=== PATIENT | male | born 1960 | race Caucasian/White ===

== ENCOUNTER → 2018-01-18 13:14 | Outpatient (CLI) | payer OTHER, SELFPAY ==
--- NOTE | 2018-01-18 | DI.RAD.S_ITS ---
PROCEDURE: XR CERVICAL SPINE 4V OR 5V INDICATIONS: NECK AND BACK PAIN TECHNIQUE: 5 views of the cervical spine were acquired. COMPARISON: None. FINDINGS: Bones: No fractures or dislocations to the T1 level. No suspicious bony lesions. There is normal range of motion between flexion and extension, with preserved normal bony alignment. Soft tissues: Prevertebral soft tissues are normal in thickness. IMPRESSION: Mild mid and lower cervical degenerative disc height reduction but no evidence of prior trauma or ligamentous laxity and subluxation is found. Dictated by: Luis Eduardo M.D. on 01/18/2018 at 13:38 Approved by: Luis Eduardo M.D. on 01/18/2018 at 13:38
== END ==
PROVIDERS: Family Provider Family Medicine; PCP Family Medicine; Visit Provider Family Medicine
DX: M54.2 Cervicalgia (principal); M54.9 Dorsalgia, unspecified
CPT/HCPCS: 72050

== ENCOUNTER → 2018-09-13 13:48 | Outpatient (CLI) | payer OTHER, SELFPAY ==
--- NOTE | 2018-09-13 | DI.RAD.S_ITS ---
PROCEDURE: FL ELBOW INJECTION MR/CT RT INDICATIONS: LOOSE BODY OF RIGHT ELBOW TECHNIQUE: The indications, alternatives, benefits, risks, and complications of the procedure were explained to the patient. Written informed consent was obtained and placed in the chart. The elbow was examined fluoroscopically in the lateral projection, and a site for needle placement chosen for entry into the elbow joint from a lateral approach. The skin was prepped and draped in a sterile fashion, and 1% lidocaine infiltrated from skin down to joint capsule. A hypodermic needle was inserted into the joint, and a small amount of iodinated contrast media injected to confirm intra-articular placement of the needle tip. This was followed by approximately 10 cc of dilute Isovue 300. The needle was removed and a dressing was applied. The patient was given post-procedural instructions and sent to the CT suite for imaging. FINDINGS: A single fluoroscopic spot image demonstrates intra-articular location of injected contrast material. 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 Dictated by: Saman Rhoades M.D. on 09/13/2018 at 16:55 Approved by: Saman Rhoades M.D. on 09/13/2018 at 16:56
--- NOTE | 2018-09-13 | DI.CT.S_ITS ---
PROCEDURE: CT UE RT W CON INDICATIONS: LOOSE BODY OF RIGHT ELBOW TECHNIQUE: After the intra-articular administration of 5 mL of air contrast, 1-1.5 mm axial sections acquired through the elbow joint, with coronal and sagittal reformats. COMPARISON: [facility] [place], CR, XR ELBOW 1 OR 2 VIEWS RIGHT, 09/06/2018, 10:09. FINDINGS: Image quality: Excellent. Bones: No fracture. Moderate periarticular osteophyte formation. Soft tissues: A 12 mm diameter loose body at the posterior aspect of the distal humerus medially is present. A 6 mm diameter intra-articular loose body adjacent to the coronoid process of the ulna. IMPRESSION: 1. Osteoarthritis. 2. Intra-articular loose bodies. Dictated by: Micaela Sage M.D. on 09/13/2018 at 14:43 Approved by: Micaela Sage M.D. on 09/13/2018 at 14:48
== END ==
PROVIDERS: PCP Family Medicine; Visit Provider Orthopaedic Surgery
DX: M24.021 Loose body in right elbow (principal); M19.021 Primary osteoarthritis, right elbow
CPT/HCPCS: 24220; 73201; 77002

== ENCOUNTER → 2018-11-19 09:51 | Outpatient (CLI) | payer OTHER, SELFPAY ==
--- NOTE | 2018-11-19 09:54 | DI.RAD.S_ITS ---
PROCEDURE: XR HIP W PEL IF DONE LT 2V INDICATIONS: hip pain TECHNIQUE: 2 views of the hip were acquired. COMPARISON: [facility], CR, XR PELVIS WITH LATERAL HIP LEFT, 09/25/2017, 15:42. [facility], CR, PELVIS 1 OR 2 VIEWS, 10/27/2009, 12:21. FINDINGS: Bones: No fractures or dislocations. No suspicious bony lesions. The visualized pelvic ring appears intact. Moderate left hip joint degeneration. Soft tissues: No suspicious soft tissue calcifications or masses. IMPRESSION: Moderate left hip joint degeneration. No interval change since 09/25/17 Dictated by: Saman Rhoades M.D. on 11/19/2018 at 14:46 Approved by: Saman Rhoades M.D. on 11/19/2018 at 14:48
[2018-11-19 11:59] LABS: Erythrocyte Sedimentation Rate 10 MM/HR (0-15)
[2018-11-19 12:18] LABS: C-Reactive Protein Quant < 0.5 mg/dL (<1.0); Rheumatoid Factor < 8.6 IU/mL (<12.0)
[2018-11-21 11:12] LABS: CCP Antibody (IgG) < 16 Units (< 20)
== END ==
PROVIDERS: PCP Family Medicine; Visit Provider Family Medicine
DX: M16.12 Unilateral primary osteoarthritis, left hip (principal)
CPT/HCPCS: 36415; 73502; 85651; 86140; 86200; 86430

== ENCOUNTER → 2019-03-12 11:28 | Outpatient (CLI) | payer OTHER, SELFPAY ==
[2019-03-16 14:08] LABS: Testosterone Free 36.9 pg/mL (35.0-155.0); Testosterone Total 314 ng/dL (250-1100)
== END ==
PROVIDERS: PCP Family Medicine; Visit Provider Family Medicine
DX: R53.83 Other fatigue (principal); R68.82 Decreased libido
CPT/HCPCS: 84402; 84403

== ENCOUNTER 2019-03-27 06:13 | Day surgery (SDC) | payer OTHER, SELFPAY ==
[2019-03-25 08:14] VITALS: BMI 28.4
[2019-03-27] VITALS (7 sets, daily range): BP systolic 97–117; BP diastolic 60–74; PULSE 67–73; RESP 9–16; TEMP 36.2–36.9; O2SAT 95–99; BMI 27.3
[2019-03-27] MEDS: LACTATED RINGERS 1,000 ML 42 ML IV (07:01)
--- NOTE | 2019-03-27 07:45 | PM.PREOP ---
Pre-operative Note Interval Note History & Physical reviewed/Exam performed by Physician: Yes Changes to H&P: No
[2019-03-27] MEDS: CEFAZOLIN 2 GM/100 ML FROZ.PIGGY IV (07:57)
--- NOTE | 2019-03-27 08:42 | SUR.OPER ---
Lateral on padded OR bed with anderson bag positioner, head on pillow, gel axillary roll in place, bottom leg bent with gel pad under knee to foot, upper leg straight and supported with pillows. Operative arm on padded arm brace and secured at humerus with coban. Non-operative arm secured on padded arm board. Safety belt at hip, tape over blanket securing lower legs and torso.
[2019-03-27] MEDS: BUPIVACAINE 0.5% W/ EPI (PF) VIAL 30 ML INJ (08:54)
--- NOTE | 2019-03-27 09:43 | PM.OP.1 ---
Operative Date/Time/Diagnoses Date of procedure: 03/27/19 Time of procedure: 08:00 Pre-op diagnosis: Right elbow stiffness with mechanical symptoms due to loose bodies Post-op diagnosis: same Procedure & Clinicians Procedure: Right elbow arthroscopic extensive debridement with removal of multiple loose bodies Same procedure as scheduled: Yes Indications: Multiple intra-articular loose bodies to the anterior and posterior elbow joint with mild arthritic changes as well as decreased range of motion. Surgeon: Hansel Tarango Box Printing Machine Operator: Jie Reza Click Yes if Unassisted: No Anesthesia Type: General Operative Notes Findings: Multiple loose bodies in the anterior aspect of the elbow. Early stage arthritic changes to both the ulnar and radial column. Thickened capsular tissue around the anterior aspect of the elbow joint. Single large loose body in the posterior aspect of the elbow in the radial gutter. Synovitis and scarring in the olecranon fossa. Closure Type: primary Specimen(s): none sent Estimated Blood Loss (mL): 5 Blood products transfused: none Tourniquet time (min): 59 Procedure in detail: On date of service, patient was met in the holding area where his operative site was signed and witnessed by the OR staff. Surgeries once again discussed with the patient in remaining questions or concerns he had were answered fully. Patient was taken back to the operating theater and placed on the operating table in a supine position. Great care was taken to ensure that all bony prominences were appropriately padded. Patient was then placed in the lateral position using a beanbag. Axillary roll was placed. The right arm was placed into the right arm lockhart with the elbow bent at 90?. Time-out was previously performed verifying patient's name, procedure, and operative site. Right arm was prepped and draped in the normal sterile fashion. Esmarch was used to exsanguinate the limb and the tourniquet was turned up to 250 mm of mercury. Patient's bony anatomy and portal sites were drawn out previously. Course of the ulnar nerve was also drawn out so it was always visible throughout the entire case. Fifteen blade was used to incise through skin only for the anterior ulnar and radial portal. Hemostat was used to bluntly dissect down into the elbow joint. Camera was placed radially and the shaver was placed ulnarly and extensive debridement of mainly the radial aspect of the elbow joint was performed. Patient had a few loose bodies some of the rather large. So grasper was used to remove some of the larger loose bodies. There was also quite a bit of synovitis in the anterior aspect of the elbow joint. We also debrided some of the thickened capsular tissue to try to help with overall range of motion. Great care was taken to ensure just the capsular tissue was removed and there was no damage to the surrounding structures. Next the camera and shaver was switched placed in the camera ulnarly and the shaver radially allowing us to debride the other anterior half of the elbow joint. Large loose body coming off the distal humerus which was removed using a grasper. And continues debridement was performed of the surrounding capsular tissue. Once we felt that we had removed all loose bodies cleaned up the synovitis and did a good capsular release we turned our attention posteriorly. Two incisions were made a posterior incision and a posterior radial incision. Shaver and camera replaced into these portals and a debridement of the olecranon fossa was performed. Patient had a very large loose body in the radial gutter which was broken up into multiple pieces and then removed. No loose bodies in the ulnar gutter. Shaver was used to debride out all the synovitis and scarring around the olecranon fossa to improve overall range of motion. Elbow was taken through range of motion and there was improvement in extension by about 10?. Patient previously had relatively full flexion. Patient had full supination and pronation as well. Portal sites were closed with nylon. Elbow was cleaned, dried, and dressed. Marcaine was injected into the elbow joint as well as around the portal sites. Patient was extubated and taken to the PACU in stable condition. Postoperatively patient will be in a sling just for comfort. There is no restrictions to range of motion. Will limit lifting for about 2 weeks. Complications: none Post-operative Condition: stable Disposition: PACU Plan for aftercare: No restrictions to range of motion. Patient can be rather aggressive with his range of motion. Will limit lifting for about 2 weeks. After 2 weeks, no restrictions whatsoever. Sling is just for comfort.
[2019-03-27] MEDS: OXYCODONE/ACETAMINOPHEN 5/325 TABLET 1 TAB PO (10:43)
== END 2019-03-27 11:02 | disposition home or self-care (01) ==
PROVIDERS: PCP Family Medicine; Visit Provider Orthopaedic Surgery
PROC: (CPT 29838; principal; 2019-03-27 07:45)
DX: M19.021 Primary osteoarthritis, right elbow (principal); M24.021 Loose body in right elbow; I48.91 Unspecified atrial fibrillation; E78.5 Hyperlipidemia, unspecified; F17.210 Nicotine dependence, cigarettes, uncomplicated; M65.9 Synovitis and tenosynovitis, unspecified
CPT/HCPCS: 29838; 29834; J0690; J1100; J2405; J2704; J3010

== ENCOUNTER → 2019-10-22 12:37 | Outpatient (CLI) | payer OTHER, SELFPAY ==
--- NOTE | 2019-10-22 12:40 | DI.RAD.S_ITS ---
PROCEDURE: XR SHOULDER LT MIN 2V INDICATIONS: shoulder pain TECHNIQUE: 3 views of the shoulder were acquired. COMPARISON: None. FINDINGS: Bones: No acute fractures or dislocations. Moderate hypertrophic degenerative changes of the left acromioclavicular joint with undersurface spurring of the distal clavicle. Coracoclavicular and acromioclavicular intervals are maintained. There are degenerative changes of the left glenohumeral joint with associated marginal osteophytes of the humeral head. No suspicious bony lesions. Visualized ribs appear intact. Soft tissues: No suspicious soft tissue calcifications. IMPRESSION: Left shoulder without acute osseous abnormalities or malalignment. Osteoarthritic changes of the left acromioclavicular and glenohumeral joints. Dictated by: Jason Linder M.D. on 10/22/2019 at 13:02 Approved by: Jason Linder M.D. on 10/22/2019 at 13:03
== END ==
PROVIDERS: PCP Family Medicine; Referring Provider Family Medicine; Visit Provider Family Medicine
DX: M25.512 Pain in left shoulder (principal)
CPT/HCPCS: 73030

== ENCOUNTER → 2019-12-10 17:16 | Outpatient (CLI) | payer OTHER, SELFPAY ==
--- NOTE | 2019-12-10 | DI.MRI.S_ITS ---
PROCEDURE: MR ELBOW RT WO CON INDICATIONS: Pain in right elbow TECHNIQUE: Noncontrast coronal proton density fast spin echo and T2 fast spin echo with fat saturation, axial and sagittal T1 spin echo and T2 fast spin echo with fat saturation through the elbow. COMPARISON: [facility], CR, XR ELBOW 1 OR 2 VIEWS RIGHT, 11/17/2019, 16:08. [facility], MR, ELBOW WITHOUT CONTRAST, 03/20/2013, 14:13. FINDINGS: Image quality: Excellent. Lateral structures: The radial collateral ligament is thickened with mild intermediate signal. There is also irregularity along its deep fibers. The findings are consistent with sequela of a moderate sprain. The lateral ulnar collateral ligament is mildly attenuated suggestive of a mild sprain. The annular ligament appears intact. The overlying common extensor tendon demonstrates tendinopathy and thickening proximally with moderate partial tearing at its origin. Medial structures: The ulnar collateral ligament appears intact. The overlying common flexor tendon demonstrates tendinopathy proximally with mild to moderate partial tearing and mild peritendinous edema. The ulnar nerve appears normal in size and signal within the cubital tunnel. Anterior structures: The biceps and brachialis tendons both appear intact as they insert onto the proximal radius and ulna, respectively. There is minimal peritendinous edema along the distal biceps tendon suggestive of minimal peritendinitis. No bicipitoradial bursal fluid. The median and radial neurovascular bundles appear normal; no focal muscle atrophy to suggest nerve impingement. Posterior structures: The conjoint triceps tendon from the long and lateral heads appears intact. The medial head of the triceps tendon also appears normal, with direct muscle insertion onto the olecranon. No olecranon bursal fluid. Bone and cartilage: No bone marrow contusions or fractures. There is mild osteophytosis along the ulnotrochlear articulation as well as the olecranon and coronoid processes. There is mild cartilage thinning along the ulna trochlea articulation with mild superficial chondromalacia. Along the radiocapitellar articulation, there is also mild cartilage thinning with mild fissuring associated with small foci of subchondral edema. No discrete loose or unstable fragment. There is a small elbow joint effusion. There are small irregular filling defects within a joint recess posterior to the capitellum along the capsule suggestive of a synovitis or sequelae of a capsular sprain. IMPRESSION: 1. Findings compatible with a moderate sprain of the radial collateral ligament and mild sprain of the lateral ulnar collateral ligament. 2. Tendinopathy and moderate partial tear at the origin of the common extensor tendon. 3. Tendinopathy and mild to moderate partial tearing at the origin of the common flexor tendon with mild peritendinitis. 4. [id number] osteoarthritic changes. 5. Small joint effusion with small irregular filling defects in a joint recess posterior to the capitellum suggestive of synovitis or sequelae of a capsular sprain. Dictated by: Valentin Willett M.D. on 12/15/2019 at 8:22 Approved by: Valentin Willett M.D. on 12/15/2019 at 8:50
== END ==
PROVIDERS: PCP Family Medicine; Referring Provider Family Medicine; Visit Provider Orthopaedic Surgery
DX: M25.521 Pain in right elbow (principal); S53.491A Other sprain of right elbow, initial encounter; M77.8 Other enthesopathies, not elsewhere classified; M25.421 Effusion, right elbow
CPT/HCPCS: 73221

== ENCOUNTER → 2019-12-13 10:57 | Outpatient (CLI) | payer OTHER, SELFPAY ==
[2019-12-13 11:28] LABS: Add Manual Diff / Slide Review NO; Basophils Absolute Auto 0 /uL (0-100); Basophils Percent Auto 1.1 % (0-2); Eosinophils Absolute Auto 100 /uL (0-450); Eosinophils Percent Auto 2.6 % (2-4); Hematocrit 40.4 % (41-53); Hemoglobin 13.7 g/dL (13.5-17.5); Lymphocytes Absolute Auto 1600 /uL (1100-4500); Lymphocytes Percent Auto 39.8 % (25-40); Mean Corpuscular HGB Conc 33.9 % (30-36); Mean Corpuscular Hemoglobin 31.8 PG (26-34); Mean Corpuscular Volume 93.8 fL (80-100); Monocytes Absolute Auto 300 /uL (0-900); Monocytes Percent Auto 8.5 % (3-14); Neutrophils Absolute Auto 1900 /uL (1500-7000); Platelet Count 234 X10^3/uL (150-400); Red Blood Cell Count 4.31 X10^6/uL (4.5-5.9); Red Cell Distribution Width 12.5 % (11.6-14.8)
[2019-12-13 11:33] LABS: Alanine Aminotransferase 24 IU/L (<50); Albumin 4.5 g/dL (3.5-5.0); Albumin Globulin Ratio 1.4 (1.0-2.8); Alkaline Phosphatase 80 U/L (38-126); Aspartate Aminotransferase 31 IU/L (17-59); BUN Creatinine Ratio 23.3 (6-22); Bilirubin Total 0.7 mg/dL (0.2-1.3); Blood Urea Nitrogen 17 mg/dL (9-20); Calcium 9.3 mg/dL (8.4-10.2); Carbon Dioxide 29 mmol/L (22-32); Chloride 105 mmol/L (98-107); Cholesterol 168 mg/dL (140-199); Estimated Glomerular Filt Rate > 60.0 mL/min (>60); Globulin 3.2 g/dL (1.7-4.1); Glucose 111 mg/dL (70-100); HDL Cholesterol 46 mg/dL (40-60); HEMOLYSIS < 15 (0-50); LDL Cholesterol Calculated 89 mg/dL (<100); Potassium 4.8 mmol/L (3.4-5.1); Sodium 139 mmol/L (137-145); Total Protein 7.7 g/dL (6.3-8.2); Triglycerides 164 mg/dL (35-150)
[2019-12-13 12:04] LABS: Prostate Specific Antigen 0.975 ng/mL (0.10-4.00)
== END ==
PROVIDERS: PCP Family Medicine; Referring Provider Family Medicine; Visit Provider Family Medicine
DX: E78.5 Hyperlipidemia, unspecified (principal); I48.91 Unspecified atrial fibrillation
CPT/HCPCS: 36415; 80053; 80061; 84153; 84443; 85025

== ENCOUNTER → 2020-05-07 10:19 | Outpatient (CLI) | payer OTHER, SELFPAY ==
--- NOTE | 2020-05-07 10:20 | DI.RAD.S_ITS ---
PROCEDURE: XR CERVICAL SPINE 2V OR 3V INDICATIONS: neck pain TECHNIQUE: 3 view(s) of the cervical spine were acquired. COMPARISON: [facility], CR, XR CERVICAL SPINE 4V OR 5V, 01/18/2018, 13:02. FINDINGS: Bones: No fractures or dislocations to the C7 level. The lateral masses of C1 appear intact on the odontoid view. No suspicious bony lesions. There is mild degenerative disease at C5-C6 and C6-C7. Bilateral facet arthropathy is scattered in cervical spine, most pronounced at C5-C6 on the left. Soft tissues: No prevertebral soft tissue swelling. IMPRESSION: 1. Mild degenerative disease at C5-C6 and C6-C7. 2. Bilateral facet arthropathy, most pronounced at C5-C6 on the left. Dictated by: Julio C Mart M.D. on 05/07/2020 at 11:39 Approved by: Julio C Mart M.D. on 05/07/2020 at 11:41
== END ==
PROVIDERS: PCP Family Medicine; Referring Provider Family Medicine; Visit Provider Family Medicine
DX: M50.322 Other cervical disc degeneration at C5-C6 level (principal); M47.812 Spondylosis without myelopathy or radiculopathy, cervical region
CPT/HCPCS: 72040

== ENCOUNTER → 2020-05-11 09:59 | Outpatient (CLI) | payer OTHER, SELFPAY ==
--- NOTE | 2020-05-11 10:06 | DI.RAD.S_ITS ---
PROCEDURE: XR SHOULDER LT MIN 2V INDICATIONS: left shoulder TECHNIQUE: 3 views of the shoulder were acquired. COMPARISON: [facility], , XR SHOULDER LT MIN 2V, 10/22/2019, 12:33. FINDINGS: Bones: No fractures or dislocations. No suspicious bony lesions. Visualized ribs appear intact. Moderate acromioclavicular and glenohumeral joint osteoarthritis. Soft tissues: No suspicious soft tissue calcifications. IMPRESSION: 1. Osteoarthritis. 2. No fracture. No acute osseous lesion. If symptoms and/or clinical suspicion for pathology persists, further assessment with repeat radiographs (7-10 days) or advanced imaging (e.g. CT, MRI or bone scan) may be helpful. Dictated by: Isela Wright MD, PhD on 05/11/2020 at 17:05 Approved by: Isela Wright MD, PhD on 05/11/2020 at 17:06
== END ==
PROVIDERS: PCP Family Medicine; Referring Provider Family Medicine; Visit Provider Family Medicine
DX: M25.512 Pain in left shoulder (principal); M19.012 Primary osteoarthritis, left shoulder
CPT/HCPCS: 73030

== ENCOUNTER → 2020-06-28 13:27 | Outpatient (CLI) | payer OTHER, SELFPAY ==
--- NOTE | 2020-06-28 13:29 | DI.MRI.S_ITS ---
PROCEDURE: MR CERVICAL SPINE WO CON INDICATIONS: cervical pain and Left radicular pain TECHNIQUE: Noncontrast sagittal T1 spin echo and T2 fast spin echo, sagittal STIR, foraminal oblique sagittal T2 fast spin echo, and axial gradient echo or T2 fast spin echo through the cervical spine. COMPARISON: None. FINDINGS: Image quality: Excellent. Alignment and Curvature: There is loss of normal cervical lordosis. There is mild grade 1 anterolisthesis of C2 on C3. Bone Marrow: Marrow demonstrates normal overall signal. Mild reactive signal within the endplates adjacent to the C2-C3, C3-C4, C5-C6, and C6-C7 intervertebral discs. Spinal Cord: Visualized spinal cord has normal size and signal. No cerebellar tonsillar herniation. Paraspinous Soft Tissues: No paravertebral masses. Prevertebral soft tissues are normal in thickness. C2-C3: Congenital canal stenosis. Moderate disc desiccation and mild diffuse disc bulge. Mild facet and uncovertebral hypertrophy bilaterally. Mild canal stenosis. Severe right and mild left foraminal stenosis. Right C3 nerve root compression. C3-C4: Congenital canal stenosis. Moderate disc desiccation. Mild diffuse disc bulge. Moderate facet and uncovertebral hypertrophy bilaterally. Moderate canal stenosis. Severe bilateral foraminal stenosis with bilateral C4 nerve root compression. C4-C5: Mild disc desiccation. Mild right and moderate left facet and uncovertebral hypertrophy bilaterally. Congenital canal stenosis. Mild canal stenosis. Mild right and severe left foraminal stenosis. Left C5 nerve root compression. C5-C6: Congenital canal stenosis. Moderate disc desiccation and diffuse disc bulge. Moderate facet and uncovertebral hypertrophy, right greater than left. Moderate canal stenosis. Severe, right greater than left foraminal stenosis with bilateral C6 nerve root compression. C6-C7: Congenital canal stenosis. Moderate disc height loss and desiccation. Moderate diffuse disc bulge. Moderate facet and uncovertebral hypertrophy bilaterally. Severe canal stenosis. Mild cord flattening. Severe bilateral foraminal stenosis with bilateral C7 nerve root compression. C7-T1: Moderate disc desiccation. Mild diffuse disc bulge. Mild facet and uncovertebral hypertrophy bilaterally. Congenital canal stenosis. Mild canal stenosis. Mild bilateral foraminal stenosis. IMPRESSION: 1. Diffuse congenital canal stenosis with superimposed disc and facet disease, as well as uncovertebral hypertrophy. 2. Multilevel canal stenosis, worst at C6-C7, where there is cord flattening. 3. Multilevel foraminal stenoses, with associated intraforaminal nerve root compression at C2-C3, C3-C4, C4-C5, C5-C6, and C6-C7. Recommend correlation with clinical symptoms to ascertain relevance of this finding. Dictated by: Micaela Sage M.D. on 06/28/2020 at 15:01 Approved by: Micaela Sage M.D. on 06/28/2020 at 15:07
== END ==
PROVIDERS: PCP Family Medicine; Referring Provider Family Medicine; Visit Provider Family Medicine
DX: M47.812 Spondylosis without myelopathy or radiculopathy, cervical region (principal); M48.02 Spinal stenosis, cervical region; M50.30 Other cervical disc degeneration, unspecified cervical region; M25.512 Pain in left shoulder
CPT/HCPCS: 72141

== ENCOUNTER → 2020-07-13 10:44 | Outpatient (CLI) | payer OTHER, SELFPAY ==
--- NOTE | 2020-07-13 10:49 | DI.RAD.S_ITS ---
PROCEDURE: XR LUMBAR SPINE 2-3V INDICATIONS: LOW BACK PAIN TECHNIQUE: 3 views of the lumbar spine were acquired. COMPARISON: None. FINDINGS: Bones: 5 [id number] vertebrae are present. There is normal bony alignment. No vertebral body compression fractures. No suspicious bony lesions. Soft tissues: Overlying bowel gas pattern is normal. No suspicious soft tissue calcifications. IMPRESSION: Note is made of a moderately severe degree of degenerative disc disease and facet osteoarthritis from L3 inferiorly, with bridging osteophytes laterally on the right at the L2-L3 level. No subluxation seen. No trauma found. Dictated by: Luis Eduardo M.D. on 07/13/2020 at 12:12 Approved by: Luis Eduardo M.D. on 07/13/2020 at 12:13
== END ==
PROVIDERS: PCP Family Medicine; Referring Provider Chiropractor; Visit Provider Chiropractor
DX: M54.5 Low back pain (principal); M51.36 Other intervertebral disc degeneration, lumbar region; M47.816 Spondylosis without myelopathy or radiculopathy, lumbar region
CPT/HCPCS: 72100

== ENCOUNTER → 2020-07-14 13:24 | Outpatient (CLI) | payer OTHER, SELFPAY ==
[2020-07-14 15:20] LABS: COVID19 -Nasal RAPID Negative (Negative)
== END ==
PROVIDERS: PCP Family Medicine; Visit Provider Physician Assistant
DX: Z20.822 Contact with and (suspected) exposure to COVID-19 (principal); R53.83 Other fatigue
CPT/HCPCS: 87635

== ENCOUNTER → 2020-10-15 17:36 | Outpatient (CLI) | payer OTHER, SELFPAY ==
--- NOTE | 2020-10-15 17:39 | DI.MRI.S_ITS ---
PROCEDURE: MR SHOULDER LT WO CON INDICATIONS: LEFT SHOULDER PAIN TECHNIQUE: Noncontrast oblique coronal T2 fast spin echo with fat saturation, oblique sagittal T1 spin echo and T2 fast spin echo with fat saturation, axial T1 spin echo and T2 fast spin echo with fat saturation through the shoulder. COMPARISON: [facility], MR, SHOULDER WITHOUT CONTRAST, 03/20/2013, 13:46. FINDINGS: Image quality: Excellent. Rotator cuff: Moderate T2 signal elevation throughout the supraspinatus and infraspinatus tendons at the humeral insertion site is present, indicating tendinopathy. There is superimposed moderate grade articular surface and intrasubstance tearing of the mid and posterior supraspinatus, as well as the mid/anterior infraspinatus tendon at the humeral insertion site, extending to the musculotendinous junction. Subscapularis tendon demonstrates mild T2 signal elevation within its mid/superior aspect at the humeral insertion site, indicating tendinopathy. Teres minor is intact. No rotator cuff atrophy. Bones and bursae: No bone marrow contusions or fractures. Subchondral cysts with surrounding degenerative marrow edema within the humeral head. Moderate acromioclavicular joint degeneration. The acromion demonstrates conventional anatomy, without an os acromiale. No pathologic subacromial-subdeltoid or subcoracoid bursal fluid is present. Capsule and soft tissues: Labrum demonstrates diffuse tearing. The long head of the biceps tendon demonstrates normal location and low-grade partial-thickness tearing. The rotator interval appears normal, without fibrosis. The coracohumeral ligament is normal in thickness. IMPRESSION: 1. Supraspinatus and infraspinatus tendinopathy with superimposed partial thickness tearing. 2. Tendinopathy of the subscapularis without superimposed tear. 3. Acromioclavicular joint osteoarthritis. 4. Diffuse glenoid labral tearing. 5. Low-grade partial thickness biceps tendon tearing. Dictated by: Micaela Sage M.D. on 10/18/2020 at 9:10 Approved by: Micaela Sage M.D. on 10/18/2020 at 9:12
== END ==
PROVIDERS: PCP Family Medicine; Referring Provider Family Medicine; Visit Provider Specialist
DX: M25.512 Pain in left shoulder (principal); M19.012 Primary osteoarthritis, left shoulder; S43.492A Other sprain of left shoulder joint, initial encounter; S46.112A Strain of muscle, fascia and tendon of long head of biceps, left arm, initial encounter
CPT/HCPCS: 73221

== ENCOUNTER → 2020-12-06 10:00 | Outpatient (CLI) | payer OTHER, SELFPAY ==
[2020-12-06 11:08] LABS: Add Manual Diff / Slide Review NO; Basophils Absolute Auto 100 /uL (0-100); Basophils Percent Auto 1.4 % (0-2); Eosinophils Absolute Auto 100 /uL (0-450); Eosinophils Percent Auto 1.5 % (2-4); Hematocrit 39.6 % (41-53); Hemoglobin 13.3 g/dL (13.5-17.5); Lymphocytes Absolute Auto 1400 /uL (1100-4500); Lymphocytes Percent Auto 35.6 % (25-40); Mean Corpuscular HGB Conc 33.7 % (30-36); Mean Corpuscular Hemoglobin 31.3 PG (26-34); Mean Corpuscular Volume 93.1 fL (80-100); Monocytes Absolute Auto 300 /uL (0-900); Monocytes Percent Auto 8.5 % (3-14); Neutrophils Absolute Auto 2000 /uL (1500-7000); Platelet Count 207 X10^3/uL (150-400); Red Blood Cell Count 4.25 X10^6/uL (4.5-5.9); Red Cell Distribution Width 12.8 % (11.6-14.8); White Blood Cell Count 3.8 X10^3/uL (4.5-11.0)
[2020-12-06 11:14] LABS: Hemoglobin A1C% w Est Avg Glu 5.4 % (4.0-6.0)
[2020-12-06 11:21] LABS: Alanine Aminotransferase 26 IU/L (<50); Albumin 4.3 g/dL (3.5-5.0); Albumin Globulin Ratio 1.4 (1.0-2.8); Alkaline Phosphatase 75 U/L (38-126); Aspartate Aminotransferase 32 IU/L (17-59); BUN Creatinine Ratio 31.5 (6-22); Bilirubin Total 0.7 mg/dL (0.2-1.3); Blood Urea Nitrogen 23 mg/dL (9-20); Calcium 9.2 mg/dL (8.4-10.2); Carbon Dioxide 28 mmol/L (22-32); Chloride 105 mmol/L (98-107); Cholesterol 175 mg/dL (140-199); Estimated Glomerular Filt Rate > 60.0 mL/min (>60); Glucose 102 mg/dL (80-110); HDL Cholesterol 58 mg/dL (40-60); HEMOLYSIS < 15 (0-50); LDL Cholesterol Calculated 100 mg/dL (<100); Sodium 138 mmol/L (137-145); Total Protein 7.3 g/dL (6.3-8.2); Triglycerides 85 mg/dL (35-150)
[2020-12-06 11:22] LABS: Potassium 4.5 mmol/L (3.4-5.1)
[2020-12-06 11:51] LABS: TSH w/ Reflex to FT4 < 0.02 uIU/mL (0.47-4.68)
[2020-12-06 11:52] LABS: Testosterone 211 ng/dL (71.8-623)
[2020-12-06 12:20] LABS: Free T4, Direct Thyroxine 0.95 ng/dL (0.78-2.19)
== END ==
PROVIDERS: PCP Family Medicine; Referring Provider Family Medicine; Visit Provider Family Medicine
DX: E78.5 Hyperlipidemia, unspecified (principal); R53.83 Other fatigue; R68.82 Decreased libido; R73.09 Other abnormal glucose
CPT/HCPCS: 36415; 80053; 80061; 83036; 84403; 84439; 84443; 85025

== ENCOUNTER → 2021-04-29 13:58 | Outpatient (CLI) | payer OTHER, SELFPAY ==
[2021-04-29 14:24] LABS: Add Manual Diff / Slide Review NO; Basophils Absolute Auto 100 /uL (0-100); Basophils Percent Auto 1.2 % (0-2); Eosinophils Absolute Auto 100 /uL (0-450); Eosinophils Percent Auto 1.6 % (2-4); Hematocrit 39.8 % (41-53); Hemoglobin 13.5 g/dL (13.5-17.5); Lymphocytes Absolute Auto 1600 /uL (1100-4500); Lymphocytes Percent Auto 35.9 % (25-40); Mean Corpuscular HGB Conc 33.8 % (30-36); Mean Corpuscular Hemoglobin 31.3 PG (26-34); Mean Corpuscular Volume 92.6 fL (80-100); Monocytes Absolute Auto 400 /uL (0-900); Monocytes Percent Auto 10.4 % (3-14); Neutrophils Absolute Auto 2200 /uL (1500-7000); Neutrophils Percent Auto 50.9 % (50-75); Platelet Count 240 X10^3/uL (150-400); Red Cell Distribution Width 12.6 % (11.6-14.8); White Blood Cell Count 4.3 X10^3/uL (4.5-11.0)
[2021-04-29 14:33] LABS: HEMOLYSIS < 15 (0-50); Iron 75 ug/dL (49-181)
[2021-04-29 14:34] LABS: BUN Creatinine Ratio 23.2 (6-22); Blood Urea Nitrogen 19 mg/dL (9-20); Calcium 9.7 mg/dL (8.4-10.2); Carbon Dioxide 28 mmol/L (22-32); Chloride 103 mmol/L (98-107); Estimated Glomerular Filt Rate > 60.0 mL/min (>60); Glucose 99 mg/dL (80-110); HEMOLYSIS < 15 (0-50); Potassium 4.4 mmol/L (3.4-5.1); Sodium 139 mmol/L (137-145)
[2021-04-29 14:44] LABS: Percent Iron Saturation 21 % (20-50); Total Iron Binding Capacity 356 ug/dL (261-462); Transferrin 276 mg/dL (206-381)
[2021-04-29 14:53] LABS: Free T3, Triiodothyronine Free 4.45 pg/mL (2.77-5.27); Free T4, Direct Thyroxine 1.14 ng/dL (0.78-2.19)
[2021-04-29 15:06] LABS: Thyroid Stimulating Hormone 0.612 uIU/mL (0.47-4.68)
[2021-04-29 15:07] LABS: Testosterone 257 ng/dL (71.8-623)
== END ==
PROVIDERS: PCP Family Medicine; Referring Provider Physician Assistant; Visit Provider Physician Assistant
DX: R68.82 Decreased libido (principal); R79.89 Other specified abnormal findings of blood chemistry; Z79.1 Long term (current) use of non-steroidal anti-inflammatories (NSAID)
CPT/HCPCS: 36415; 80048; 83540; 83550; 84403; 84439; 84443; 84481; 85025

== ENCOUNTER → 2021-10-31 09:29 | Outpatient (CLI) | payer OTHER, SELFPAY ==
[2021-10-31 10:16] LABS: COVID19 -Nasal RAPID Negative (Negative)
== END ==
PROVIDERS: PCP Family Medicine; Visit Provider Surgery
DX: Z01.812 Encounter for preprocedural laboratory examination (principal); Z20.822 Contact with and (suspected) exposure to COVID-19
CPT/HCPCS: 87635; C9803

== ENCOUNTER 2021-11-01 07:35 | Day surgery (SDC) | payer OTHER, SELFPAY ==
[2021-11-01] MEDS: LACTATED RINGERS 1,000 ML 200 ML IV (07:48)
[2021-11-01 07:56] VITALS: BP 133/83; PULSE 89; RESP 14; TEMP 36.4; O2SAT 99; BMI 26.4
--- NOTE | 2021-11-01 08:13 | PM.HP.1 ---
History of Present Illness History of Present Illness Date Patient Seen: 11/01/21 Time Patient Seen: 08:13 Chief complaint: SDC Narrative: The patient presents for colorectal screening. Previously normal colonoscopy approximately 10 years ago. No personal or family history of colon cancer. Reports for relatively thinner caliber stools recently. No nausea, vomiting, abdominal pain, loss of appetite, unexplained weight loss, diarrhea, constipation, melena, hematochezia, or bright red blood per rectum. Patient History Medical History Arthritis of spine Cervical spine arthritis Chicken pox (~1965) Fatigue Gout (~2011) Impaired glucose metabolism Influenza A Laceration of head Low testosterone (~2012) Osteoarthritis Osteoporosis (~1967) Paroxysmal A-fib Pre-syncope Primary generalized (osteo)arthritis Radiculopathy of arm Rheumatoid arthritis Shoulder pain Syncope Surgical History Anesthesia History of cardiac radiofrequency ablation (RFA) (~2018) History of elbow surgery (~2018) Status post cryoablation (07/30/18) Family & Social History Family History Mother Hyperlipidemia Hypertension Social History: household members spouse Tobacco & Substance use: Tobacco type cigars Smoking Status Former smoker alcohol intake current alcohol intake frequency 0-2 drinks per day Substance Use Type marijuana Meds Home Medications and Allergies Home Medications Medication Instructions Recorded Confirmed Type sildenafil 100 mg tablet 100 mg PO DAILY PRN #10 tab 12/13/20 11/01/21 Rx atorvastatin 40 mg tablet (Lipitor) 40 mg PO DAILY #90 tab 06/23/21 11/01/21 Rx tramadol 50 mg tablet 50 mg PO DAILY PRN #30 tab 06/23/21 11/01/21 Rx Allergies Allergy/AdvReac Type Severity Reaction Status Date / Time No Known Drug Allergies Allergy Verified 11/01/21 07:51 Exam Vital Signs (past 8 hours): - 11/01/21 07:56 Temperature 97.6 F Pulse Rate 89 Respiratory Rate 14 Blood Pressure 133/83 Pulse Oximetry 99 Oxygen Delivery Method Room Air Narrative Exam Narrative: General adult male alert oriented no acute distress Chest nonlabored respirations Extremities warm well perfused Assessment & Plan Assessment & Plan narrative: The patient requires colorectal screening and colonoscopy is recommended. Technical details were discussed. Risks, benefits, alternatives explained. Risks including but not limited to myocardial infarction, aspiration, bleeding, pain, missed lesion, incomplete examination, need for further radiographic studies, colonic perforation, and need for major abdominal surgery were discussed. All questions were answered to their satisfaction, and they are in agreement with this plan. Time Spent With Patient Critical Care time: I spent a total of [] minutes of critical care time on this patient's care today; this time is exclusive of procedural time.
[2021-11-01] MEDS: MIDAZOLAM 5 MG/5 ML VIAL IV (08:36)
[2021-11-01] MEDS: fentaNYL 250 MCG/5 ML INJ IV (08:36)
--- NOTE | 2021-11-01 08:48 | PM.OP.COLON ---
Operative Date/Time/Diagnoses Date of procedure: 11/01/21 Time of procedure: 08:49 Pre-op diagnosis: Screening Post-op diagnosis: same Procedure & Clinicians Study performed: Colonoscopy Same procedure as scheduled: Yes Indications: Screening colonoscopy Surgeon: Spencer Diallo Procedure Notes Procedure in detail: Medications: Conscious sedation using 7 mg IV midazolam and 200 mcg IV of fentanyl The history and physical was performed/updated and the patient is ASA class is 2. The procedure was discussed in detail with the patient. Potential risks complications including infection, bleeding, missed diagnosis, perforation, need for surgery, and were explained. Their questions were answered and informed consent was obtained. Patient was brought to the procedure room and placed standard monitoring equipment. The patient's vital signs were monitored continuously throughout the entire procedure. Prior to starting time-out was performed. The patient was placed in the left lateral recumbent position. Procedural sedation was administered. Examination began with a thorough inspection of the perianal area there was no evidence of fissures, fistulae, external hemorrhoids or cutaneous malignancy. The colonoscopy scope was then placed into the anal canal and was advanced to the cecum, which was identified by the ileocecal valve, the appendiceal orifice and the confluence of the taenia. The scope was then slowly withdrawn examining colon thoroughly in all directions, irrigating it of any residual stool. FINDINGS 1. Normal healthy colon. No masses or polyps 2. Internal hemorrhoids The patient tolerated the procedure well. They will be discharged once criteria are met. The prep was of good/excellent quality. The withdrawl time was 8 minutes. The sedation time was 28 minutes. Specimen(s): none sent Complications: none Impression: Normal colonoscopy Post-procedure Recommendations: Colonoscopy in 10 years Disposition: same day surgery
[2021-11-01 08:53] VITALS: BP 121/83; PULSE 83; RESP 14; TEMP 36.5; O2SAT 96
[2021-11-01 08:58] VITALS: BP 114/75; PULSE 86; RESP 17; O2SAT 97
[2021-11-01 09:03] VITALS: BP 119/88; PULSE 88; RESP 15; O2SAT 87
[2021-11-01 09:25] VITALS: BP 122/83; PULSE 79; RESP 18; TEMP 36.8; O2SAT 97
== END 2021-11-01 09:30 | disposition home or self-care (01) ==
PROVIDERS: PCP Family Medicine; Referring Provider Surgery; Visit Provider Surgery
PROC: 0DJD8ZZ Inspection of Lower Intestinal Tract, Via Natural or Artificial Opening Endoscopic (ICD-10-PCS; CPT 45378; principal; 2021-11-01 08:30)
DX: Z12.11 Encounter for screening for malignant neoplasm of colon (principal); K64.8 Other hemorrhoids
CPT/HCPCS: 45378; 99152; 99153; J2250; J3010

== ENCOUNTER → 2022-04-07 10:45 | Outpatient (CLI) | payer OTHER, SELFPAY ==
[2022-04-07 12:58] LABS: Add Manual Diff / Slide Review NO; Basophils Absolute Auto 0 /uL (0-100); Basophils Percent Auto 1.1 % (0-2); Eosinophils Absolute Auto 100 /uL (0-450); Eosinophils Percent Auto 1.4 % (2-4); Hematocrit 40.7 % (41-53); Hemoglobin 13.9 g/dL (13.5-17.5); Lymphocytes Absolute Auto 1500 /uL (1100-4500); Lymphocytes Percent Auto 36.2 % (25-40); Mean Corpuscular HGB Conc 34.1 % (30-36); Mean Corpuscular Hemoglobin 31.6 PG (26-34); Mean Corpuscular Volume 92.7 fL (80-100); Monocytes Absolute Auto 400 /uL (0-900); Monocytes Percent Auto 9.4 % (3-14); Neutrophils Absolute Auto 2100 /uL (1500-7000); Neutrophils Percent Auto 51.9 % (50-75); Platelet Count 238 X10^3/uL (150-400); Red Blood Cell Count 4.39 X10^6/uL (4.5-5.9); Red Cell Distribution Width 13.3 % (11.6-14.8); White Blood Cell Count 4.1 X10^3/uL (4.5-11.0)
[2022-04-07 14:49] LABS: Alanine Aminotransferase 25 IU/L (<50); Albumin 4.5 g/dL (3.5-5.0); Albumin Globulin Ratio 1.4 (1.0-2.8); Alkaline Phosphatase 82 U/L (38-126); Aspartate Aminotransferase 32 IU/L (17-59); BUN Creatinine Ratio 21.4 (6-22); Bilirubin Total 0.8 mg/dL (0.2-1.3); Blood Urea Nitrogen 18 mg/dL (9-20); Calcium 9.3 mg/dL (8.4-10.2); Carbon Dioxide 30 mmol/L (22-32); Chloride 103 mmol/L (98-107); Cholesterol 181 mg/dL (140-199); Estimated Glomerular Filt Rate > 60 mL/min (>60); Globulin 3.2 g/dL (1.7-4.1); Glucose 94 mg/dL (80-110); HDL Cholesterol 55 mg/dL (40-60); HEMOLYSIS < 15 (0-50); LDL Cholesterol Calculated 112 mg/dL (<100); Potassium 4.7 mmol/L (3.4-5.1); Sodium 140 mmol/L (137-145); Total Protein 7.7 g/dL (6.3-8.2); Triglycerides 70 mg/dL (35-150)
[2022-04-07 15:18] LABS: Thyroid Stimulating Hormone 0.604 uIU/mL (0.47-4.68)
[2022-04-07 15:19] LABS: Prostate Specific Antigen 1.53 ng/mL (0.10-4.00)
== END ==
PROVIDERS: PCP Family Medicine; Referring Provider Family Medicine; Visit Provider Family Medicine
DX: E78.2 Mixed hyperlipidemia (principal); R68.82 Decreased libido; R79.89 Other specified abnormal findings of blood chemistry; Z12.5 Encounter for screening for malignant neoplasm of prostate
CPT/HCPCS: 36415; 80053; 80061; 84153; 84443; 85025

== ENCOUNTER → 2022-07-06 14:45 | Outpatient (CLI) | payer OTHER, SELFPAY ==
[2022-07-06 16:40] LABS: Alanine Aminotransferase 27 IU/L (<50); Albumin 4.5 g/dL (3.5-5.0); Albumin Globulin Ratio 1.6 (1.0-2.8); Alkaline Phosphatase 77 U/L (38-126); Aspartate Aminotransferase 29 IU/L (17-59); Bilirubin Total 0.5 mg/dL (0.2-1.3); Bilirubin Unconjugated 0.2 mg/dL (0.0-1.1); Globulin 2.9 g/dL (1.7-4.1); HEMOLYSIS < 15 (0-50); Total Protein 7.4 g/dL (6.3-8.2)
[2022-07-06 17:18] LABS: Testosterone 197 ng/dL (71.8-623)
== END ==
PROVIDERS: PCP Family Medicine; Referring Provider Family Medicine; Visit Provider Family Medicine
DX: B35.1 Tinea unguium (principal); R68.82 Decreased libido; R79.89 Other specified abnormal findings of blood chemistry; Z79.899 Other long term (current) drug therapy
CPT/HCPCS: 36415; 80076; 84403

== ENCOUNTER → 2022-07-28 11:18 | Outpatient (CLI) | payer OTHER, SELFPAY ==
[2022-07-28 13:02] LABS: Testosterone 280 ng/dL (71.8-623)
== END ==
PROVIDERS: PCP Family Medicine; Referring Provider Urology; Visit Provider Urology
DX: E29.1 Testicular hypofunction (principal)
CPT/HCPCS: 36415; 84403

== ENCOUNTER → 2022-10-05 10:53 | Outpatient (CLI) | payer OTHER, SELFPAY ==
[2022-10-05 12:24] LABS: Hemoglobin 13.7 g/dL (13.5-17.5); Mean Corpuscular HGB Conc 33.4 % (30-36); Mean Corpuscular Hemoglobin 31.4 PG (26-34); Mean Corpuscular Volume 94.1 fL (80-100); Platelet Count 227 X10^3/uL (150-400); Red Blood Cell Count 4.36 X10^6/uL (4.5-5.9); Red Cell Distribution Width 13.3 % (11.6-14.8); White Blood Cell Count 5.5 X10^3/uL (4.5-11.0)
[2022-10-05 13:26] LABS: Prostate Specific Antigen Scrn 1.58 ng/mL (0.1-4.0)
[2022-10-05 13:29] LABS: Testosterone 898 ng/dL (71.8-623)
== END ==
PROVIDERS: PCP Family Medicine; Referring Provider Urology; Visit Provider Urology
DX: E29.1 Testicular hypofunction (principal); Z12.5 Encounter for screening for malignant neoplasm of prostate
CPT/HCPCS: 36415; 82670; 84403; 85027; G0103

== ENCOUNTER → 2022-11-16 16:10 | Outpatient (CLI) | payer OTHER, SELFPAY ==
--- NOTE | 2022-11-16 16:11 | DI.US.S_ITS ---
PROCEDURE: US PERIPH VENOUS LOW EXTREM RT INDICATIONS: PAIN AND SWELLING TECHNIQUE: Real-time imaging, as well as color and pulse Doppler interrogation, were performed of the lower extremity deep veins from the inguinal ligament to the popliteal fossa. COMPARISON: None. FINDINGS: The common femoral, femoral and popliteal veins are normally compressible, and free of intraluminal thrombus. Color and pulse Doppler demonstrate normal phasic intraluminal flow. There is normal augmentation response to distal compression maneuver. IMPRESSION: Negative right lower extremity duplex venous ultrasound for DVT. Dictated by: Kirill Bruno M.D. on 11/16/2022 at 16:54 Approved by: Kirill Bruno M.D. on 11/16/2022 at 16:54
== END ==
PROVIDERS: PCP Family Medicine; Referring Provider Family Medicine; Visit Provider Family Medicine
DX: M79.604 Pain in right leg (principal); R22.41 Localized swelling, mass and lump, right lower limb
CPT/HCPCS: 93971

== ENCOUNTER → 2023-03-10 15:50 | Outpatient (CLI) | payer OTHER, SELFPAY ==
--- NOTE | 2023-03-10 15:51 | DI.MRI.S_ITS ---
PROCEDURE: MR HEAD/BRAIN WO/W CON INDICATIONS: trigeminal neuralgia TECHNIQUE: Noncontrast sagittal T1 spin echo, axial T2 fast spin echo, axial FLAIR, axial gradient echo, axial diffusion and ADC through the brain. Axial/sagittal/coronal 3-D CISS, thin-slice axial T1 spin echo with fat saturation through the skull base. After the administration of contrast, axial and coronal thin-slice T1 spin echo with fat saturation through the skull base, axial and coronal and sagittal T1 spin echo with fat saturation through the brain. COMPARISON: None. FINDINGS: Image quality: Excellent. Trigeminal nerves: Trigeminal nerves and ganglia are within normal limits without abnormal enhancement nor regions of mass effect. CSF spaces: Ventricles are normal in size and shape. No extra-axial fluid collections. Basal cisterns are patent. Brain: No intracranial bleeds or mass effects. No abnormal intracranial enhancement. Diffusion weighted images show no acute ischemic insults. Mild degree of patchy high FLAIR signal within the periventricular and subcortical white matter. Wing-white matter interface is intact. Brainstem is normal. Normal intravascular flow voids are present. Skull and face: Calvarial marrow signal is normal. Orbits appear normal. Sinuses: Sinuses and mastoids appear clear. IMPRESSION: 1. No acute process. No recent infarct. 2. Mild small vessel ischemic disease. 3. Negative evaluation of the trigeminal nerves. Dictated by: Micaela Sage M.D. on 03/12/2023 at 9:24 Approved by: Micaela Sage M.D. on 03/12/2023 at 9:26
== END ==
PROVIDERS: PCP Family Medicine; Referring Provider Family Medicine; Visit Provider Family Medicine
DX: G50.0 Trigeminal neuralgia (principal)
CPT/HCPCS: 70553; A9579

== ENCOUNTER → 2023-04-05 09:23 | Outpatient (CLI) | payer OTHER, SELFPAY ==
[2023-04-05 10:46] LABS: Add Manual Diff / Slide Review NO; Basophils Absolute Auto 100 /uL (0-100); Eosinophils Absolute Auto 100 /uL (0-450); Eosinophils Percent Auto 1.8 % (2-4); Hematocrit 41.2 % (41-53); Lymphocytes Absolute Auto 1800 /uL (1100-4500); Lymphocytes Percent Auto 36.6 % (25-40); Mean Corpuscular Hemoglobin 31.5 PG (26-34); Mean Corpuscular Volume 92.7 fL (80-100); Monocytes Absolute Auto 500 /uL (0-900); Monocytes Percent Auto 9.2 % (3-14); Neutrophils Absolute Auto 2600 /uL (1500-7000); Neutrophils Percent Auto 51.4 % (50-75); Platelet Count 240 X10^3/uL (150-400); Red Blood Cell Count 4.45 X10^6/uL (4.5-5.9); Red Cell Distribution Width 12.5 % (11.6-14.8)
[2023-04-05 11:06] LABS: Alanine Aminotransferase 31 IU/L (<50); Albumin 4.4 g/dL (3.5-5.0); Albumin Globulin Ratio 1.5 (1.0-2.8); Alkaline Phosphatase 81 U/L (38-126); Aspartate Aminotransferase 28 IU/L (17-59); BUN Creatinine Ratio 26.7 (6-22); Bilirubin Total 0.7 mg/dL (0.2-1.3); Blood Urea Nitrogen 23 mg/dL (9-20); Calcium 9.6 mg/dL (8.4-10.2); Carbon Dioxide 29 mmol/L (22-32); Chloride 104 mmol/L (98-107); Cholesterol 175 mg/dL (140-199); Estimated Glomerular Filt Rate > 60 mL/min (>60); Globulin 2.9 g/dL (1.7-4.1); Glucose 102 mg/dL (80-110); HDL Cholesterol 50 mg/dL (40-60); HEMOLYSIS < 15 (0-50); LDL Cholesterol Calculated 99 mg/dL (<100); Potassium 4.8 mmol/L (3.4-5.1); Sodium 139 mmol/L (137-145); Total Protein 7.3 g/dL (6.3-8.2); Triglycerides 131 mg/dL (35-150)
[2023-04-05 11:35] LABS: Prostate Specific Antigen Scrn 1.27 ng/mL (0.1-4.0)
[2023-04-05 11:38] LABS: Testosterone 299 ng/dL (71.8-623)
[2023-04-05 12:01] LABS: Thyroid Stimulating Hormone 1.07 uIU/mL (0.47-4.68)
== END ==
PROVIDERS: PCP Family Medicine; Referring Provider Family Medicine; Visit Provider Family Medicine
DX: R79.89 Other specified abnormal findings of blood chemistry (principal); I48.91 Unspecified atrial fibrillation; E78.5 Hyperlipidemia, unspecified; R68.82 Decreased libido; Z12.5 Encounter for screening for malignant neoplasm of prostate
CPT/HCPCS: 36415; 80053; 80061; 84403; 84443; 85025; G0103

== ENCOUNTER 2023-06-22 03:19 | Emergency (ER) | payer OTHER, SELFPAY ==
[2023-06-22] VITALS (8 sets, daily range): BP systolic 130–140; BP diastolic 70–79; PULSE 55–79; RESP 20; TEMP 37.1; O2SAT 96–99; BMI 26.9
--- NOTE | 2023-06-22 03:38 | DI.RAD.S_ITS ---
PROCEDURE: XR KNEE RT 3V INDICATIONS: knee pain TECHNIQUE: 3 views of the knee were acquired. COMPARISON: [facility], CR, XR KNEE ARTHRITIC SERIES RT, 05/22/2023, 11:06. FINDINGS: Bones: Recent right total knee arthroplasty. Components are aligned. Soft tissues: Large joint effusion. No suspicious soft tissue calcifications. IMPRESSION: Recent right total knee joint arthroplasty placement. Persistent large effusion. Agree with preliminary report. Dictated by: Jay Conner M.D. on 06/22/2023 at 8:21 Approved by: Jay Conner M.D. on 06/22/2023 at 8:21
--- NOTE | 2023-06-22 03:38 | DI.CT.S_ITS ---
PROCEDURE: CT ANGIO CHEST PE PROTOCOL INDICATIONS: syncope, high risk for PE TECHNIQUE: After the administration of intravenous contrast, 2 mm thick sections acquired from the pulmonary apices to the posterior costophrenic angles. 3-dimensional maximum intensity projection (MIP) coronal and sagittal reformats were then acquired through the thorax. For radiation dose reduction, the following was used: automated exposure control, adjustment of mA and/or kV according to patient size. COMPARISON: None. FINDINGS: Image quality: Diagnostic. Pulmonary arteries: Pulmonary arteries are normal in size, and demonstrate no intraluminal filling defects to suggest central pulmonary embolism. Lower Neck: No enlarged lymph nodes. Thyroid: No thyroid nodules which require sonographic follow up, per consensus guidelines. Axillae: No enlarged lymph nodes. Chest Wall: Unremarkable. Bones: Unremarkable. Lungs and Pleura: No pneumothorax or pleural effusions. No consolidation or suspicious nodules. Heart: Heart size is enlarged. No pericardial effusion. Marked coronary calcifications for age. Thoracic Vessels: Mild ascending aortic aneurysm measuring 4.3 centimeter. Mediastinum and [place]: No enlarged lymph nodes. Esophagus: No wall thickening. No hiatal hernia. Upper Abdomen: Visualized upper abdomen solid organs and bowel loops appear normal. IMPRESSION: No pulmonary embolus. No acute cardiopulmonary process. Marked coronary artery calcifications for age. Consider cardiology referral. Agree with preliminary report. Dictated by: Jay Conner M.D. on 06/22/2023 at 8:21 Approved by: Jay Conner M.D. on 06/22/2023 at 8:35
--- NOTE | 2023-06-22 03:43 | ED.EXTPRO ---
HPI - Extremity Problem General Chief complaint: Extremity Problem,Nontraumatic Stated complaint: syncope- recent knee replacement. Source: patient and EMS Mode of arrival: EMS History of Present Illness HPI Narrative: This is a 63-year-old man who is 2 days status post right total knee replacement by Dr. Castillo at [facility]. Patient had a syncopal event tonight. He tells me that he was going to the bathroom to urinate, felt nauseated and sat down. Nausea got worse he tried to get up to get back to his bedroom and collapsed. He did not have chest pain or shortness of breath. He is not presently having chest pain or shortness of breath. He noticed bleeding saturating the dressing of his right leg where he had the knee replacement tonight. This was after the syncopal event. He did not hit his head. He is not taking anticoagulation other than aspirin. He does not have a severe headache although he is reporting some nausea at present which he had previous to this. He is not noted any calf swelling. Says it he had a syncopal event previously after having some other surgery. Additionally, he is on Carter for pain and says that he is not had a bowel movement since the surgery. He is not having urinary symptoms. Related Data Previous Rx's Medication Instructions Recorded atorvastatin 40 mg tablet See Rx Instructions .Route 07/17/22 .COMPLEX #90 tabs sildenafil 100 mg tablet See Rx Instructions .Route 01/03/23 .COMPLEX #10 tabs meloxicam 7.5 mg tablet See Rx Instructions .Route 01/09/23 .COMPLEX #90 tabs tramadol 50 mg tablet 50 mg PO DAILY PRN pain #30 tabs 03/19/23 methocarbamol 750 mg tablet 750 mg PO BEDTIME #30 tabs 04/11/23 Allergies Allergy/AdvReac Type Severity Reaction Status Date / Time No Known Drug Allergies Allergy Verified 04/11/23 09:01 Patient History Medical History Arthritis of spine Cervical spine arthritis Chicken pox (~1965) Fatigue Gout (~2011) Impaired glucose metabolism Influenza A Laceration of head Low testosterone (~2012) Osteoarthritis Osteoporosis (~1967) Paroxysmal A-fib Pre-syncope Primary generalized (osteo)arthritis Radiculopathy of arm Rheumatoid arthritis Shoulder pain Syncope Surgical History Anesthesia History of cardiac radiofrequency ablation (RFA) (~2019) History of elbow surgery (~2019) Status post cryoablation (07/30/18) Family History Mother Hyperlipidemia Hypertension Social History (Updated 12/11/19 @ 09:52 by Charo Delacruz LPN) marital status: household members: spouse Smoking Status: Former smoker alcohol intake: current substance use type: does not use Smoking Status: Former smoker alcohol intake frequency: 0-2 drinks per day Substance Use Type: marijuana Exam Initial Vital Signs Initial Vital Signs: Vital Signs Pulse Rate 79 06/22/23 03:22 Blood Pressure 140/79 06/22/23 03:22 Pulse Oximetry 98 06/22/23 03:22 Const General: No acute distress HENMT Head: normocephalic and atraumatic Eyes General: Yes appearance normal, both eyes and all related structures Pupils: PERRL EOM: EOM intact bilaterally Resp Effort & Inspection: normal respiratory effort Auscultation: clear to auscultation bilaterally Cardio Rate: regular rate Rhythm: regular rhythm Heart Sounds: S1 normal, S2 normal and no murmurs GI Inspection: normal to inspection and non-distended Palpation: no hepatosplenomegaly, No aortic enlargement and No pulsatile mass Auscultation: normal bowel sounds Skin General: dry skin and warm Neuro General: patient awake and patient oriented x3 Extrem Other: Patient arrives with compression hose on both lower extremities, there is a blood saturated dressing over the surgical wound at his right knee. Pedal pulses are intact in the right leg. He is intact sensation and movement in the right foot. The surgical incision for the right total knee replacement has 4 cm of dehiscence superior to the knee. There is some bleeding and mild gaping below this. There is no palpable deformity or effusion in the joint. He does have some pain with passive range of motion which occurred while you are taking his elastic hose off. Course Orders Ordered: ED Orders 06/22/23 03:38 CT angio chest PE protocol Stat XR knee RT 3V Stat EKG-12 Lead Stat 06/22/23 03:39 CBC Auto Diff [Complete Blood Count AUTO DIFF] Stat CMP [Comprehensive Metabolic Panel] Stat Discontinued Medications Bisacodyl (Bisacodyl 10 Mg Supp) 10 mg OH NOW ONE Stop: 06/22/23 05:08 Last Admin: 06/22/23 05:14 Dose: 10 mg Ondansetron HCl (Ondansetron 4 Mg/2 Ml Inj) 4 mg IV NOW ONE Stop: 06/22/23 03:39 Last Admin: 06/22/23 03:51 Dose: 4 mg Documented By: BB Consultations Consultation #1: Case discussed with Dr. Camara, on-call for Orthopedic that [place], agrees with plan to close these surgical wound with Steri-Strips and have the patient follow up in the office Vital Signs Vital signs: Vital Signs - 8 hr 06/22/23 03:22 06/22/23 03:22 06/22/23 03:23 Temperature 98.8 F Pulse Rate 79 55 L Pulse Rate [Right Dorsalis Pedis] Respiratory Rate 20 Blood Pressure 140/79 140/79 Pulse Oximetry 98 98 Oxygen Delivery Method Room Air 06/22/23 03:30 06/22/23 03:30 06/22/23 04:00 Temperature Pulse Rate 75 Pulse Rate [Right Dorsalis Pedis] 77 Respiratory Rate Blood Pressure 130/71 Pulse Oximetry 98 Oxygen Delivery Method 06/22/23 04:00 06/22/23 04:00 06/22/23 04:29 Temperature Pulse Rate 76 Pulse Rate [Right Dorsalis Pedis] Respiratory Rate Blood Pressure 130/71 135/72 Pulse Oximetry 98 Oxygen Delivery Method 06/22/23 04:29 06/22/23 04:30 06/22/23 04:30 Temperature Pulse Rate 78 77 Pulse Rate [Right Dorsalis Pedis] Respiratory Rate Blood Pressure 137/71 Pulse Oximetry 99 99 Oxygen Delivery Method 06/22/23 04:59 06/22/23 05:00 06/22/23 05:00 Temperature Pulse Rate 79 79 Pulse Rate [Right Dorsalis Pedis] Respiratory Rate Blood Pressure 139/70 Pulse Oximetry 96 96 Oxygen Delivery Method MDM - Extremity (Nontraumatic) Lab Data Lab results narrative: CBC with diff is unremarkable, CMP is unremarkable 06/22/23 03:39 06/22/23 03:39 Labs: Lab Results 06/22/23 Range/Units 03:39 WBC 11.1 H (4.5-11.0) X10^3/uL RBC 3.71 L (4.5-5.9) X10^6/uL Hgb 11.6 L (13.5-17.5) g/dL Hct 33.7 L (41-53) % MCV 90.9 (80-100) fL MCH 31.2 (26-34) PG MCHC 34.3 (30-36) % RDW 12.8 (11.6-14.8) % Plt Count 182 (150-400) X10^3/uL Neut % (Auto) 72.6 (50-75) % Lymph % (Auto) 16.1 L (25-40) % [place] % (Auto) 9.7 (3-14) % Eos % (Auto) 1.1 L (2-4) % Baso % (Auto) 0.5 (0-2) % Neut # (Auto) 8000 H (1377-6867) /uL Lymph # (Auto) 1800 (1716-8519) /uL [place] # (Auto) 1100 H (0-900) /uL Eos # (Auto) 100 (0-450) /uL Baso # (Auto) 100 (0-100) /uL Sodium 136 L (137-145) mmol/L Potassium 4.4 (3.4-5.1) mmol/L Chloride 105 (98-107) mmol/L Carbon Dioxide 28 (22-32) mmol/L BUN 16 (9-20) mg/dL Creatinine 0.74 (0.66-1.25) mg/dL Estimated GFR > 60 (>60) mL/min BUN/Creatinine Ratio 21.6 (6-22) Glucose 123 H (80-110) mg/dL Calcium 8.4 (8.4-10.2) mg/dL Total Bilirubin 0.9 (0.2-1.3) mg/dL AST 45 (17-59) IU/L ALT 31 (<50) IU/L Alkaline Phosphatase 62 (38-126) U/L Total Protein 6.5 (6.3-8.2) g/dL Albumin 3.7 (3.5-5.0) g/dL Globulin 2.8 (1.7-4.1) g/dL Albumin/Globulin Ratio 1.3 (1.0-2.8) Imaging Data CT scan - chest: My Impression: Independent review of CT angio chest, no pulmonary embolism no infiltrate Radiologist's Impression: 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 No acute finding in the chest. Aneurysmal ascending thoracic aorta measuring up to 4.4 cm. ? ECG Data Interpretation: ECG shows normal sinus rhythm at [address] segment elevation,, he does have T-wave inversions in the V1 through V3, there are no old EKGs available for comparison. MDM Narrative Medical decision making narrative: 63-year-old man who had a right total knee replacement 2 days ago and had a syncopal episode tonight after walking to the bathroom. Workup regarding syncope is reassuring, he does have aneurysmal dilation of the ascending aorta, but no evidence of dissection no murmur he has been hemodynamically stable throughout and nothing to suggest that a dysrhythmia occurred today. He has had a wound dehiscence and his right knee this was cleaned and Steri-Strips were applied. He is to follow up with his orthopedist regarding the wound dehiscence. Patient has had constipation related to opiate pain medications since his surgeries. According to nursing staff there was no palpable stool when a bisacodyl suppository was placed so I do not think that fecal impaction is likely. I recommended magnesium citrate at home. Discharge Plan Departure Patient Disposition: Home Clinical Impression: Constipation due to pain medication Syncope Qualifiers: Syncope type: vasovagal syncope Qualified Code(s): R55 - Syncope and collapse Surgical wound dehiscence Qualifiers: Encounter type: initial encounter Qualified Code(s): T81.31XA - Disruption of external operation (surgical) wound, not elsewhere classified, initial encounter Activity Restrictions/Additional Instructions: No serious cause for fainting was identified today. I think it is safe to go home. On the CT scan done today we did identify a small aneurysm of the ascending aorta. This is an incidental finding and I did not believe that it is related to your symptoms today. Discussed this with your primary care provider at your 1st opportunity. The surgical wound on your right knee open up a bit, we placed Steri-Strips, contact your surgeon today to arrange for follow-up. Continue previous home medications, try to limit your use of opiates which are certainly contributing to constipation. I recommend trying a half bottle of magnesium citrate, be close to the toilet when you do this. If you are not having results within an hour you can take the other half of the bottle. If you are having chest pain, fevers, recurrent fainting or other acute symptoms recheck in the emergency department. Make an appointment to follow up soon with her primary care provider to discuss today's visit Prescriptions: No Action methocarbamol 750 mg tablet 750 mg PO BEDTIME Qty: 30 1RF atorvastatin 40 mg tablet See Rx Instructions .ROUTE .COMPLEX Qty: 90 3RF Dose Instruction: TAKE 1 TABLET DAILY Rx Instructions: TAKE 1 TABLET DAILY sildenafil 100 mg tablet See Rx Instructions .ROUTE .COMPLEX Qty: 10 11RF Dose Instruction: TAKE 1 TABLET DAILY, 30 MINUTES TO 4 HOURS BEFORE ACTIVITY NEEDED FOR SEXUAL ACTIVITY Rx Instructions: TAKE 1 TABLET DAILY, 30 MINUTES TO 4 HOURS BEFORE ACTIVITY NEEDED FOR SEXUAL ACTIVITY meloxicam 7.5 mg tablet See Rx Instructions .ROUTE .COMPLEX Qty: 90 3RF Dose Instruction: TAKE 1 TABLET DAILY Rx Instructions: TAKE 1 TABLET DAILY tramadol 50 mg tablet 50 mg PO DAILY PRN (Reason: pain) Qty: 30 0RF Referrals: Arnold Mcnair MD [Primary Care Provider] - Stand Alone Forms: Patient Portal/API
[2023-06-22] MEDS: ONDANSETRON 4 MG/2 ML INJ IV (03:51)
[2023-06-22 03:52] LABS: Add Manual Diff / Slide Review NO; Basophils Absolute Auto 100 /uL (0-100); Basophils Percent Auto 0.5 % (0-2); Eosinophils Absolute Auto 100 /uL (0-450); Eosinophils Percent Auto 1.1 % (2-4); Hematocrit 33.7 % (41-53); Hemoglobin 11.6 g/dL (13.5-17.5); Lymphocytes Absolute Auto 1800 /uL (1100-4500); Lymphocytes Percent Auto 16.1 % (25-40); Mean Corpuscular HGB Conc 34.3 % (30-36); Mean Corpuscular Hemoglobin 31.2 PG (26-34); Mean Corpuscular Volume 90.9 fL (80-100); Monocytes Absolute Auto 1100 /uL (0-900); Monocytes Percent Auto 9.7 % (3-14); Neutrophils Absolute Auto 8000 /uL (1500-7000); Neutrophils Percent Auto 72.6 % (50-75); Platelet Count 182 X10^3/uL (150-400); Red Blood Cell Count 3.71 X10^6/uL (4.5-5.9); Red Cell Distribution Width 12.8 % (11.6-14.8); White Blood Cell Count 11.1 X10^3/uL (4.5-11.0)
[2023-06-22 04:00] LABS: Alanine Aminotransferase 31 IU/L (<50); Albumin 3.7 g/dL (3.5-5.0); Albumin Globulin Ratio 1.3 (1.0-2.8); Alkaline Phosphatase 62 U/L (38-126); Aspartate Aminotransferase 45 IU/L (17-59); BUN Creatinine Ratio 21.6 (6-22); Bilirubin Total 0.9 mg/dL (0.2-1.3); Blood Urea Nitrogen 16 mg/dL (9-20); Calcium 8.4 mg/dL (8.4-10.2); Carbon Dioxide 28 mmol/L (22-32); Chloride 105 mmol/L (98-107); Estimated Glomerular Filt Rate > 60 mL/min (>60); Globulin 2.8 g/dL (1.7-4.1); Glucose 123 mg/dL (80-110); HEMOLYSIS 40 (0-50); Potassium 4.4 mmol/L (3.4-5.1); Sodium 136 mmol/L (137-145); Total Protein 6.5 g/dL (6.3-8.2)
[2023-06-22] MEDS: BISACODYL 10 MG SUPP PR (05:14)
== END 2023-06-22 07:16 | disposition home or self-care (01) ==
PROVIDERS: Emergency Provider Emergency Medicine; PCP Family Medicine
DX: R55 Syncope and collapse (principal); T81.31XA Disruption of external operation (surgical) wound, not elsewhere classified, initial encounter; K59.03 Drug induced constipation
CPT/HCPCS: 36415; 71275; 73562; 80053; 85025; 93005; 93010; 96374; 99284; J2405; Q9967

== ENCOUNTER → 2023-09-07 14:58 | Outpatient (CLI) | payer OTHER, SELFPAY ==
[2023-09-07 17:36] LABS: Add Manual Diff / Slide Review NO; Basophils Absolute Auto 100 /uL (0-100); Basophils Percent Auto 0.9 % (0-2); Eosinophils Absolute Auto 0 /uL (0-450); Eosinophils Percent Auto 0.7 % (2-4); Hematocrit 37.6 % (41-53); Lymphocytes Absolute Auto 2200 /uL (1100-4500); Lymphocytes Percent Auto 34.4 % (25-40); Mean Corpuscular HGB Conc 34.4 % (30-36); Mean Corpuscular Hemoglobin 31.1 PG (26-34); Mean Corpuscular Volume 90.3 fL (80-100); Monocytes Absolute Auto 600 /uL (0-900); Neutrophils Absolute Auto 3600 /uL (1500-7000); Platelet Count 291 X10^3/uL (150-400); Red Blood Cell Count 4.17 X10^6/uL (4.5-5.9); Red Cell Distribution Width 12.7 % (11.6-14.8); White Blood Cell Count 6.5 X10^3/uL (4.5-11.0)
[2023-09-07 17:53] LABS: Alanine Aminotransferase 40 IU/L (<50); Albumin 4.4 g/dL (3.5-5.0); Albumin Globulin Ratio 1.4 (1.0-2.8); Alkaline Phosphatase 87 U/L (38-126); Aspartate Aminotransferase 84 IU/L (17-59); Bilirubin Total 0.7 mg/dL (0.2-1.3); Blood Urea Nitrogen 20 mg/dL (9-20); Calcium 9.3 mg/dL (8.4-10.2); Carbon Dioxide 28 mmol/L (22-32); Chloride 106 mmol/L (98-107); Estimated Glomerular Filt Rate > 60 mL/min (>60); Globulin 3.2 g/dL (1.7-4.1); Glucose 101 mg/dL (80-110); HEMOLYSIS < 15 (0-50); Potassium 4.1 mmol/L (3.4-5.1); Sodium 141 mmol/L (137-145); Total Protein 7.6 g/dL (6.3-8.2)
[2023-09-07 18:10] LABS: Vitamin D 25 Hydroxy (D3) 27.8 ng/mL (30.0-100.0)
[2023-09-07 18:25] LABS: TSH w/ Reflex to FT4 0.62 uIU/mL (0.47-4.68)
[2023-09-07 18:26] LABS: Testosterone 161 ng/dL (71.8-623)
== END ==
PROVIDERS: PCP Family Medicine; Referring Provider Internal Medicine Critical Care Medicine; Visit Provider Internal Medicine Critical Care Medicine
DX: G47.33 Obstructive sleep apnea (adult) (pediatric) (principal); R06.02 Shortness of breath
CPT/HCPCS: 36415; 80053; 82306; 84403; 84443; 85025

== ENCOUNTER → 2023-09-13 07:58 | Outpatient (CLI) | payer OTHER, SELFPAY | LOC: RESP 07:59 | PROVIDERS: PCP Family Medicine; Referring Provider Internal Medicine Critical Care Medicine; Visit Provider Internal Medicine Critical Care Medicine | DX: R06.02 Shortness of breath (principal); J98.8 Other specified respiratory disorders | CPT/HCPCS: 94060; 94726; 94729 ==

== ENCOUNTER → 2023-12-24 10:20 | Outpatient (CLI) | payer OTHER, SELFPAY ==
--- NOTE | 2023-12-25 00:49 | DI.NM.S_ITS ---
DATE OF SERVICE: 12/24/2023 NAME OF STUDY: Exercise perfusion study. INDICATION: 1. Paroxysmal atrial fibrillation. RADIOPHARMACEUTICAL: 25.6 millicurie technetium-99m Myoview IV was injected at stress and 11.4 millicurie technetium-99m Myoview IV was injected at rest. CARDIAC STRESS: The patient walked on Dennis protocol for 12 minutes and 20 seconds, achieved maximum heart rate of 156, which was 99% of target heart rate. Normal blood pressure response. Resting blood pressure 126/82 and peak blood pressure 198/92 mmHg. Achieved 12.8 METS of workload. KHADRA -45%. Baseline rhythm sinus. During stress, no convincing ischemic EKG changes seen. Rare PVCs. No obvious AFib. No anginal pain. The patient had some shortness of breath at peak exercise with some fatigue. RAW DATA: There is increased subdiaphragmatic activity. The patient's weight is 250 pounds. GATED STUDY: Stress LV ejection fraction 62% without any obvious wall motion abnormalities. Resting end-diastolic volume 176 mL. TID ratio 0.95, which is within normal limits. Lung/heart ratio 0.21, which is within normal limits. MYOCARDIAL PERFUSION: Stress supine, resting supine and stress prone images were compared to each other. Stress supine and resting supine images revealed moderate to severely decreased perfusion of inferior wall extending into the inferior apex as well as basal inferior septum, which got significantly improved during stress prone images suggestive of diaphragmatic tissue attenuation artifact. No convincing ischemia or infarction pattern seen during stress prone images. CONCLUSION: I will call this study likely a normal myocardial perfusion study with evidence of diaphragmatic tissue attenuation artifact, which got improved during stress prone images. Excellent exercise tolerance. KHADRA -45%. Normal hemodynamic response. No ischemic electrocardiographic changes. No significant arrhythmias. No chest pain. Overall, low-risk exercise perfusion study. Left ventricular function preserved. Lazaro Garcia - BLANCA/seble/ doc#: [id number]/job#: [id number] dd: 12/24/2023 16:38:00 dt: 12/24/2023 23:37:00 DICTATING MD/COPIES TO: Nisa Montenegro MD COPIES MNE: GARRISON;
== END ==
PROVIDERS: PCP Family Medicine; Referring Provider Internal Medicine Cardiovascular Disease; Visit Provider Internal Medicine Cardiovascular Disease
DX: I48.91 Unspecified atrial fibrillation (principal)
CPT/HCPCS: 78452; 93017; A9502

== ENCOUNTER → 2024-04-04 09:15 | Outpatient (CLI) | payer OTHER, SELFPAY ==
[2024-04-04 10:54] LABS: Add Manual Diff / Slide Review NO; Basophils Absolute Auto 0 /uL (0-100); Basophils Percent Auto 0.9 % (0-2); Eosinophils Absolute Auto 100 /uL (0-450); Eosinophils Percent Auto 1.9 % (2-4); Hematocrit 40.6 % (41-53); Hemoglobin 13.8 g/dL (13.5-17.5); Lymphocytes Absolute Auto 1800 /uL (1100-4500); Lymphocytes Percent Auto 34.5 % (25-40); Mean Corpuscular HGB Conc 33.9 % (30-36); Mean Corpuscular Hemoglobin 31.4 PG (26-34); Mean Corpuscular Volume 92.5 fL (80-100); Monocytes Absolute Auto 400 /uL (0-900); Neutrophils Absolute Auto 2900 /uL (1500-7000); Neutrophils Percent Auto 54.7 % (50-75); Platelet Count 237 X10^3/uL (150-400); Red Blood Cell Count 4.39 X10^6/uL (4.5-5.9); Red Cell Distribution Width 12.9 % (11.6-14.8); White Blood Cell Count 5.3 X10^3/uL (4.5-11.0)
[2024-04-04 11:46] LABS: Prostate Specific Antigen 1.26 ng/mL (0.10-4.00)
[2024-04-04 11:48] LABS: Testosterone 239 ng/dL (71.8-623)
== END ==
PROVIDERS: PCP Family Medicine; Referring Provider Nurse Practitioner; Visit Provider Nurse Practitioner
DX: E29.1 Testicular hypofunction (principal)
CPT/HCPCS: 36415; 84153; 84403; 85025

== ENCOUNTER → 2024-05-06 09:22 | Outpatient (CLI) | payer OTHER, SELFPAY ==
[2024-05-06 10:34] LABS: Cholesterol 175 mg/dL (140-199); HDL Cholesterol 60 mg/dL (40-60); LDL Cholesterol Calculated 98 mg/dL (<100); Triglycerides 86 mg/dL (35-150)
[2024-05-06 11:05] LABS: Prostate Specific Antigen 1.46 ng/mL (0.10-4.00)
== END ==
PROVIDERS: PCP Family Medicine; Referring Provider Family Medicine; Visit Provider Family Medicine
DX: Z00.00 Encounter for general adult medical examination without abnormal findings (principal); E78.2 Mixed hyperlipidemia; Z79.899 Other long term (current) drug therapy; G47.30 Sleep apnea, unspecified; N40.1 Benign prostatic hyperplasia with lower urinary tract symptoms; R35.1 Nocturia; R79.89 Other specified abnormal findings of blood chemistry
CPT/HCPCS: 36415; 80061; 84153

== ENCOUNTER → 2024-06-12 11:23 | Outpatient (CLI) | payer OTHER, SELFPAY ==
[2024-06-12 12:20] LABS: Add Manual Diff / Slide Review NO; Basophils Absolute Auto 100 /uL (0-100); Basophils Percent Auto 1.3 % (0-2); Eosinophils Absolute Auto 100 /uL (0-450); Eosinophils Percent Auto 1.2 % (2-4); Hematocrit 41.6 % (41-53); Hemoglobin 14.1 g/dL (13.5-17.5); Lymphocytes Absolute Auto 1600 /uL (1100-4500); Lymphocytes Percent Auto 31.3 % (25-40); Mean Corpuscular Hemoglobin 31.9 PG (26-34); Mean Corpuscular Volume 93.8 fL (80-100); Monocytes Absolute Auto 400 /uL (0-900); Neutrophils Absolute Auto 3100 /uL (1500-7000); Neutrophils Percent Auto 58.2 % (50-75); Platelet Count 251 X10^3/uL (150-400); Red Blood Cell Count 4.44 X10^6/uL (4.5-5.9); White Blood Cell Count 5.3 X10^3/uL (4.5-11.0)
[2024-06-12 13:32] LABS: Prostate Specific Antigen 1.69 ng/mL (0.10-4.00)
[2024-06-12 13:35] LABS: Testosterone 574 ng/dL (71.8-623)
== END ==
PROVIDERS: PCP Family Medicine; Referring Provider Nurse Practitioner; Visit Provider Nurse Practitioner
DX: E29.1 Testicular hypofunction (principal)
CPT/HCPCS: 36415; 84153; 84403; 85025

== ENCOUNTER → 2024-08-25 12:07 | Outpatient (CLI) | payer OTHER, SELFPAY ==
[2024-08-25 17:58] LABS: Prostate Specific Antigen 1.67 ng/mL (0.10-4.00)
[2024-08-25 18:01] LABS: Testosterone 839 ng/dL (71.8-623)
== END ==
LOC: LAB 12:09
PROVIDERS: PCP Family Medicine; Referring Provider Nurse Practitioner; Visit Provider Nurse Practitioner
DX: E29.1 Testicular hypofunction (principal)
CPT/HCPCS: 36415; 84153; 84403

== ENCOUNTER → 2024-09-01 12:53 | Outpatient (CLI) | payer OTHER, SELFPAY ==
[2024-09-01 14:46] LABS: Hematocrit 43.8 % (41-53); Mean Corpuscular HGB Conc 34.1 % (30-36); Mean Corpuscular Hemoglobin 31.3 PG (26-34); Mean Corpuscular Volume 91.7 fL (80-100); Platelet Count 273 X10^3/uL (150-400); Red Blood Cell Count 4.78 X10^6/uL (4.5-5.9); Red Cell Distribution Width 12.8 % (11.6-14.8); White Blood Cell Count 5.9 X10^3/uL (4.5-11.0)
[2024-09-01 15:45] LABS: Testosterone 229 ng/dL (71.8-623)
[2024-09-01 15:46] LABS: Estradiol, Total 20.2 pg/mL
== END ==
PROVIDERS: PCP Family Medicine; Referring Provider Nurse Practitioner; Visit Provider Nurse Practitioner
DX: E29.1 Testicular hypofunction (principal)
CPT/HCPCS: 36415; 82670; 84403; 85027

== ENCOUNTER → 2025-01-23 09:12 | Outpatient (CLI) | payer OTHER, SELFPAY ==
--- NOTE | 2025-01-23 09:13 | DI.MG.S_ITS ---
MM diagnostic mammo BI: 01/23/2025. BI-RADS: 2 CLINICAL: 64-year old male for bilateral diagnostic mammogram. No personal or first-degree family history of breast cancer. The patient reports pain and a palpable abnormality (1 month) in the left breast. Patient has been on testosterone replacement therapy for the past year. PRIOR EXAMS No prior examinations available. MAMMOGRAPHY TECHNIQUE: 2D and 3D (tomosynthesis) digital mammographic views obtained, with additional images as needed for full coverage. Current study was also evaluated with a Computer Aided Detection (CAD) system. DENSITY B. There are scattered areas of fibroglandular density. MAMMOGRAPHY FINDINGS Right: Central, Retroareolar, Far Anterior depth: There is mild nodular pattern gynecomastia. There are no suspicious masses, calcifications, or other findings in the breast. Left: Central, Retroareolar, Far Anterior depth: Underlying the skin marker and correlating with the patient's reported painful palpable abnormality, there is moderate nodular gynecomastia. There are no suspicious masses, calcifications, or other findings in the breast. IMPRESSION: * No evidence of malignancy with benign findings. RECOMMENDATIONS Left * Clinical follow-up is recommended, and further management of palpable abnormalities or other focal signs or symptoms should be based on the results of clinical evaluation. If palpable abnormality or other concerning symptom persists or progresses, further clinical evaluation should be considered. Bilateral * Clinical follow up is also recommended for the patient's gynecomastia, with evaluation for etiologies including medication/drug-related factors, hormonal or systemic disorders. COMMENTS: Findings and recommendations were conveyed to the patient during today's evaluation. OVERALL ASSESSMENT CATEGORY BI-RADS-2: Benign. ELECTRONICALLY SIGNED: Solange Julien M.D. on 01/23/2025 at 10:48:39 AM PT Interpreting Station ID: [id number]
== END ==
LOC: MAMMO 09:12
PROVIDERS: PCP Family Medicine; Referring Provider Family Medicine; Visit Provider Family Medicine
DX: N63.20 Unspecified lump in the left breast, unspecified quadrant (principal); N62 Hypertrophy of breast; N64.4 Mastodynia
CPT/HCPCS: 77066; G0279

== ENCOUNTER → 2025-04-06 14:23 | Outpatient (CLI) | payer MEDICARE, OTHER, SELFPAY ==
--- NOTE | 2025-04-06 14:28 | DI.RAD.S_ITS ---
PROCEDURE: XR SHOULDER LT MIN 2V INDICATIONS: left shoulder pain TECHNIQUE: Three views of the left shoulder were acquired. COMPARISON: [facility], CR, XR SHOULDER LT MIN 2V, 05/11/2020, 9:03. FINDINGS: Bones: There are no osseous abnormalities. Acromioclavicular and glenohumeral joints: Moderate acromioclavicular and mild glenohumeral degeneration noted. Soft tissues: Focal calcification expected location rotator cuff suggest calcific tendinitis. IMPRESSION: Moderate acromioclavicular and mild glenohumeral degeneration Probable calcific tendinitis distal rotator cuff Dictated by: Lazaro Rosenberg M.D. on 04/07/2025 at 10:01 Approved by: Lazaro Rosenberg M.D. on 04/07/2025 at 10:02
== END ==
LOC: LAB 14:24 → RAD 14:27
PROVIDERS: PCP Family Medicine; Referring Provider Family Medicine; Visit Provider Family Medicine
DX: M19.012 Primary osteoarthritis, left shoulder (principal); M25.512 Pain in left shoulder
CPT/HCPCS: 73030

== ENCOUNTER → 2025-04-24 17:18 | Outpatient (CLI) | payer MEDICARE, OTHER, SELFPAY ==
--- NOTE | 2025-04-24 17:19 | DI.MRI.S_ITS ---
PROCEDURE: MR SHOULDER LT WO CON INDICATIONS: left rotator cuff syndrome TECHNIQUE: Noncontrast oblique coronal T2 fast spin echo with fat saturation, oblique sagittal T1 spin echo and T2 fast spin echo with fat saturation, axial T1 spin echo and T2 fast spin echo with fat saturation through the shoulder. COMPARISON: [facility], MR, MR SHOULDER LT WO CON, 10/15/2020, 18:04. FINDINGS: Image quality: Excellent. Rotator cuff: Moderate to severe diffuse increased T2 weighted signal with areas of thickening of the mid and distal supraspinatus, tendinopathy with partial tears most notably of the articular surface, progressed. Associated increased subacromial/subdeltoid bursal fluid and a 9 mm subacromial cyst. Moderate increased T2 weighted signal in the mid and distal infraspinatus and subscapular predominantly intrasubstance and bursal surface, tendinopathy with partial tears, progressed. Fatty atrophy of teres minor otherwise no significant fatty atrophy of the rotator cuff Bones and bursae: Moderate to severe degenerative changes of the acromioclavicular joint with joint space narrowing, large osteophytes, subchondral edema, capsular hypertrophy progressed. Type 2 laterally downsloping acromion. Moderate degenerative changes of the glenohumeral joint with diffuse cartilage thinning, subchondral edema, osteophytes in the humeral head and glenoid. Heterogeneous signal changes and irregularity of the superior labrum suggests chronic appearing SLAP tear. No MR evidence of fracture or dislocation. Numerous cysts are noted in the humeral head at the greater tuberosity measuring up to 9 mm. Capsule and soft tissues: Moderate glenohumeral joint effusion. Moderate increased fluid in the biceps tendon sheath may be related to tenosynovitis. Increased T2 weighted signal and thinning of the proximal biceps anchor, tendinopathy versus partial tear. IMPRESSION: Numerous findings progressed compared to the prior exam most notably with tendinopathy and partial tears of the supraspinatus, subscapularis and infraspinatus as discussed above. Degenerative changes glenohumeral and acromioclavicular joints as discussed above. Glenohumeral joint effusion. Other findings as above. Dictated by: Abdias Painter M.D. on 04/27/2025 at 12:20 Approved by: Abdias Painter M.D. on 04/27/2025 at 12:36
== END ==
PROVIDERS: PCP Family Medicine; Referring Provider Physician Assistant Surgical; Visit Provider Physician Assistant Surgical
DX: M75.112 Incomplete rotator cuff tear or rupture of left shoulder, not specified as traumatic (principal); M25.412 Effusion, left shoulder
CPT/HCPCS: 73221

== ENCOUNTER → 2025-05-07 12:57 | Outpatient (CLI) | payer MEDICARE, OTHER, SELFPAY | PROVIDERS: PCP Family Medicine; Referring Provider Family Medicine; Visit Provider Family Medicine | DX: R41.3 Other amnesia (principal); Z82.0 Family history of epilepsy and other diseases of the nervous system | CPT/HCPCS: 36415 ==